=== PATIENT | female | born 1980 | race Caucasian/White ===

== ENCOUNTER → 2019-01-30 | Outpatient (CLI) | payer OTHER | END | disposition home or self-care (01) | LOC: OIH 15:38 | PROVIDERS: ATTEND Internal Medicine Cardiovascular Disease | DX: Z13.6 Encounter for screening for cardiovascular disorders (principal) | CPT/HCPCS: 75571 ==

== ENCOUNTER → 2021-04-03 | Outpatient (CLI) | payer BC ==
[~2021-04-03] MED LIST: ERYT-131 PO; GADOTERATE MEGLUMINE 10 MMOL/20 ML VIAL IV ONE; METH18TA23 PO; METO10TA3 PO; MIDODRINE PO; MULT1CAP32 PO; ONDA4TAB4 PO; PANT40TA54 PO; PIND10TA2 PO; PROP225T3 PO; SERT-438 PO
== END | disposition home or self-care (01) ==
LOC: RAH 14:29
PROVIDERS: ATTEND Internal Medicine Cardiovascular Disease
DX: R47.01 Aphasia (principal); R42 Dizziness and giddiness
CPT/HCPCS: 70553; A9575

== ENCOUNTER → 2021-04-14 | Outpatient (CLI) | payer BC ==
[~2021-04-14] MED LIST changes: -GADOTERATE MEGLUMINE 10 MMOL/20 ML VIAL IV ONE
== END | disposition home or self-care (01) ==
LOC: RAH 14:25
PROVIDERS: ATTEND Otolaryngology Plastic Surgery within the Head & Neck
DX: J32.9 Chronic sinusitis, unspecified (principal); J34.2 Deviated nasal septum
CPT/HCPCS: 70486

== ENCOUNTER 2023-07-21 06:52 | Day surgery (SDC) | payer BC ==
[~2023-07-21] VITALS: Ht 170.2 cm; Wt 70.8 kg
[2023-07-21] VITALS (13 sets, daily range): BP systolic 78–139; BP diastolic 42–98; PULSE 80–88; RESP 11–17
[2023-07-21] MEDS: 0.9%NACL 1000ML 1,000 ML IV ONE (07:14)
[2023-07-21] MEDS ORDERED: PROPOFOL 10 MG/ML 20ML VIAL IV ONE ×2 (07:18→08:26)
[2023-07-21] MEDS ORDERED: LIDOCAINE PF 100MG/5ML (2%) SYRINGE 5ML ONE (07:18)
[2023-07-21] MEDS ORDERED: MODA100T31 PO (07:25)
[2023-07-21] MEDS ORDERED: FAMO20TA8 PO (07:25)
[2023-07-21] MEDS ORDERED: METH18TA PO (07:25)
[2023-07-21] MEDS ORDERED: ONDA-104 PO (07:27)
[2023-07-21] MEDS ORDERED: FLUT16H NASAL (07:27)
[2023-07-21] MEDS ORDERED: BUPR100T5 PO (07:29)
[2023-07-21] MEDS ORDERED: MIDAZOLAM HCL 1 MG/ML 2ML VIAL ONE (08:26)
== END 2023-07-21 09:45 | disposition home or self-care (01) ==
LOC: DAH 06:52 → ENDO 06:52
PROVIDERS: ATTEND Surgery
DX: K92.1 Melena (principal); K63.5 Polyp of colon; K62.1 Rectal polyp; K63.89 Other specified diseases of intestine; K57.30 Diverticulosis of large intestine without perforation or abscess without bleeding; K59.04 Chronic idiopathic constipation; K64.0 First degree hemorrhoids; K64.5 Perianal venous thrombosis; G90.9 Disorder of the autonomic nervous system, unspecified; I48.91 Unspecified atrial fibrillation; J45.909 Unspecified asthma, uncomplicated; I10 Essential (primary) hypertension; K21.9 Gastro-esophageal reflux disease without esophagitis; K31.84 Gastroparesis; G90.1 Familial dysautonomia [Riley-Day]; Z88.8 Allergy status to other drugs, medicaments and biological substances; Z79.899 Other long term (current) drug therapy; Z95.0 Presence of cardiac pacemaker; Z90.710 Acquired absence of both cervix and uterus
CPT/HCPCS: 45380; 45385; J7030 ×2; J2001; J2250; J2704; A4620; A4215; A4223; A7002; A4222; A4221; A4663; A4606; J3490

== ENCOUNTER → 2023-08-27 | Outpatient (CLI) | payer BC ==
[~2023-08-27] MED LIST changes: +BUPR100T5 PO; -ERYT-131 PO; +FAMO20TA8 PO; +FLUT16H NASAL; +METH18TA PO; +MODA100T31 PO; -MULT1CAP32 PO; +ONDA-104 PO; -ONDA4TAB4 PO
== END | disposition home or self-care (01) ==
LOC: SHCH 14:27
PROVIDERS: ATTEND Internal Medicine Cardiovascular Disease
DX: I34.89 Other nonrheumatic mitral valve disorders (principal); R55 Syncope and collapse; I47.9 Paroxysmal tachycardia, unspecified
CPT/HCPCS: 93306